=== PATIENT | male | born 1960 | race African-American/Black ===

== ENCOUNTER 2020-06-05 11:51 | Emergency (ER) | payer MEDICAID ==
[~2020-06-05] VITALS: Ht 185.4 cm; Wt 142.0 kg
[2020-06-05] MEDS ORDERED: SODIUM CHLORIDE 0.9% 1,000 ML IV ONE (12:15)
[2020-06-05] MEDS ORDERED: MAGNESIUM/ALUMINUM HYDROXIDE/SIMETHICONE 30ML UDC PO STA (12:15)
[2020-06-05] MEDS ORDERED: KETOROLAC 30MG/ML VIAL IV STA (12:15)
[2020-06-05] MEDS ORDERED: ONDANSETRON HCL 4MG/2ML INJ IV STA (12:15)
[2020-06-05 12:55] LABS: BASOPHILS % 0.9 % (0.0-2.0); EOSINOPHILS % 0.3 % (0.0-5.0); HEMATOCRIT. 33.7 % (42.0-52.0); HEMOGLOBIN. 10.3 g/dL (14.0-18.0); MEAN CORPUSCULAR HEMOGLOBIN 23.7 pg (28.0-32.0); MEAN CORPUSCULAR VOLUME 77.3 fL (80.0-94.0); MEAN PLATELET VOLUME 9.2 fl (7.4-10.4); MONOCYTES % 9.6 % (2.0-8.0); NEUTROPHILS % 73.2 % (40.0-76.0); PLATELET 180 x1000/uL (130-400); RED BLOOD CELL COUNT 4.35 mill/uL (4.7-6.1); RED CELL DISTRIBUTION WIDTH 20.4 % (11.6-14.6)
[2020-06-05 12:56] LABS: CHLORIDE 108 mEq/L (98-107)
[2020-06-05 13:00] LABS: ETHANOL BLOOD < 10 mg/dL
[2020-06-05 13:04] LABS: INR 1.6; PROTHROMBIN TIME 16.6 sec (9.6-11.0)
[2020-06-05 15:45] VITALS: BP 148/74
== END 2020-06-05 15:57 | disposition home or self-care (01) ==
LOC: ER 11:51
DX: R10.13 Epigastric pain (principal); E11.9 Type 2 diabetes mellitus without complications
CPT/HCPCS: 36415; 74176; 76705; 80053; 80320; 83690; 85025; 85610; 93005; 96361; 96374; 96375; 99285; J1885; J2405; J7030; G0480

== ENCOUNTER 2020-07-14 20:26 | Emergency (ER) | payer MEDICAID ==
[~2020-07-14] VITALS: Ht 185.4 cm; Wt 129.0 kg
[2020-07-14 21:41] VITALS: BP 116/85
== END 2020-07-14 21:44 | disposition home or self-care (01) ==
LOC: ER 20:42
DX: Z48.00 Encounter for change or removal of nonsurgical wound dressing (principal); I25.10 Atherosclerotic heart disease of native coronary artery without angina pectoris; Z95.1 Presence of aortocoronary bypass graft; R03.0 Elevated blood-pressure reading, without diagnosis of hypertension; E11.9 Type 2 diabetes mellitus without complications
CPT/HCPCS: 99281

== ENCOUNTER 2020-12-06 22:41 | Emergency (ER) | payer MEDICAID ==
[~2020-12-06] VITALS: Ht 185.4 cm; Wt 141.0 kg
[2020-12-07] MEDS ORDERED: OXYMETAZOLINE HCL NASAL SPRAY 15ML BOTHNSTRLS SCH
[2020-12-07] MEDS ORDERED: CLONIDINE 0.1MG TABLET PO ONE
[2020-12-07 00:23] VITALS: BP 130/96
[2020-12-07 00:33] LABS: BASOPHILS % 0.7 % (0.0-2.0); EOSINOPHILS % 0.7 % (0.0-5.0); HEMATOCRIT. 37.5 % (42.0-52.0); HEMOGLOBIN. 11.8 g/dL (14.0-18.0); LYMPHOCYTES % 19.5 % (20.0-50.0); MEAN CORPUSCULAR HEMOGLOBIN 24.5 pg (28.0-32.0); MEAN CORPUSCULAR VOLUME 77.5 fL (80.0-94.0); MEAN PLATELET VOLUME 8.4 fl (7.4-10.4); MONOCYTES % 8.4 % (2.0-8.0); NEUTROPHILS % 70.7 % (40.0-76.0); PLATELET 166 x1000/uL (130-400); RED BLOOD CELL COUNT 4.84 mill/uL (4.7-6.1); RED CELL DISTRIBUTION WIDTH 16.4 % (11.6-14.6)
[2020-12-07] MEDS ORDERED: OXYM30SP26 BOTHNSTRLS (00:43)
== END 2020-12-07 00:52 | disposition home or self-care (01) ==
LOC: ER 22:41
DX: R04.0 Epistaxis (principal); I10 Essential (primary) hypertension; E11.9 Type 2 diabetes mellitus without complications; Z98.890 Other specified postprocedural states
CPT/HCPCS: 36415; 85025; 99283

== ENCOUNTER 2021-02-14 07:49 | Emergency (ER) | payer MEDICAID ==
[~2021-02-14] VITALS: Ht 185.4 cm; Wt 103.0 kg
[~2021-02-14 07:49] MED LIST: OXYM30SP26 BOTHNSTRLS
[2021-02-14] MEDS ORDERED: FAMOTIDINE 20MG/2ML VIAL IV STA (08:12)
[2021-02-14] MEDS ORDERED: ONDANSETRON HCL 4MG/2ML INJ IV STA (08:12)
[2021-02-14] MEDS ORDERED: MORPHINE SULFATE 4 MG/ML CPJ (NOT FOR IM USE) IV STA (08:12)
[2021-02-14] MEDS ORDERED: SODIUM CHLORIDE 0.9% 1,000 ML IV ONE (08:15)
[2021-02-14 08:57] LABS: BASOPHILS % 0.7 % (0.0-2.0); EOSINOPHILS % 1.1 % (0.0-5.0); HEMATOCRIT. 37.8 % (42.0-52.0); HEMOGLOBIN. 12.1 g/dL (14.0-18.0); LYMPHOCYTES % 20.5 % (20.0-50.0); MEAN CORPUSCULAR HEMOGLOBIN 24.5 pg (28.0-32.0); MEAN CORPUSCULAR VOLUME 76.4 fL (80.0-94.0); MEAN PLATELET VOLUME 8.1 fl (7.4-10.4); MONOCYTES % 8.3 % (2.0-8.0); NEUTROPHILS % 69.4 % (40.0-76.0); PLATELET 203 x1000/uL (130-400); RED BLOOD CELL COUNT 4.95 mill/uL (4.7-6.1); RED CELL DISTRIBUTION WIDTH 15.7 % (11.6-14.6)
[2021-02-14 09:00] LABS: CHLORIDE 105 mEq/L (98-107)
[2021-02-14] MEDS ORDERED: IOHEXOL-300 100 ML BOTTLE ONE (09:57)
[2021-02-14] MEDS ORDERED: IOHEXOL 350 MG/ML 200ML INFUS..BTL IV ONE (09:57)
[2021-02-14] MEDS ORDERED: MAGNESIUM/ALUMINUM HYDROXIDE/SIMETHICONE 30ML UDC PO STA (10:18)
[2021-02-14] MEDS ORDERED: VISCOUS LIDOCAINE 2% 15 ML UDC PO STA (10:18)
[2021-02-14 11:36] LABS: CLARITY URINE CLEAR (CLEAR); COLOR URINE YELLOW (YELLOW); KETONES URINE NEGATIVE (NEGATIVE); LEUKOCYTE ESTERASE URINE NEGATIVE (NEGATIVE); NITRITE URINE NEGATIVE (NEGATIVE); OCCULT BLOOD URINE NEGATIVE (NEGATIVE); PH URINE 5.5 (4.5-8.0); PROTEIN URINE NEGATIVE (NEGATIVE); SPECIFIC GRAVITY URINE 1.055 (1.005-1.030)
[2021-02-14] MEDS ORDERED: ONDA4TAB5 MT (11:49)
[2021-02-14] MEDS ORDERED: FAMO40TA70 MT (11:49)
[2021-02-14] MEDS ORDERED: HYDR-4346 MT (11:49)
[2021-02-14] MEDS ORDERED: HYDROCODONE/ACETAMINOPHEN 5/325MG TABLET PO ONE (12:15)
[2021-02-14 12:30] VITALS: BP 177/89
== END 2021-02-14 12:50 | disposition home or self-care (01) ==
LOC: ER 07:49
DX: K85.90 Acute pancreatitis without necrosis or infection, unspecified (principal); E11.9 Type 2 diabetes mellitus without complications; I10 Essential (primary) hypertension; Z79.899 Other long term (current) drug therapy
CPT/HCPCS: 36415; 74177; 80053; 81003; 83605; 83690; 84484; 85025; 93005; 96361; 96374; 96375; 99285; J2270; J2405; J3490; J7030; Q9967; Z7610

== ENCOUNTER 2021-03-06 00:20 | Emergency (ER) | payer MEDICAID ==
[~2021-03-06] VITALS: Ht 185.4 cm; Wt 141.0 kg
[~2021-03-06 00:20] MED LIST changes: +FAMO40TA70 MT; +HYDR-4346 MT; +ONDA4TAB5 MT
[2021-03-06 02:04] VITALS: BP 161/105
[2021-03-06 02:33] LABS: CLARITY URINE CLEAR (CLEAR); COLOR URINE YELLOW (YELLOW); KETONES URINE NEGATIVE (NEGATIVE); LEUKOCYTE ESTERASE URINE TRACE (NEGATIVE); NITRITE URINE NEGATIVE (NEGATIVE); OCCULT BLOOD URINE NEGATIVE (NEGATIVE); PROTEIN URINE NEGATIVE (NEGATIVE); SPECIFIC GRAVITY URINE 1.025 (1.005-1.030)
[2021-03-06] MEDS ORDERED: NA PHOS,M-B/NA PHOS,DI-BA ENEMA 118ML PR ONE (02:45)
[2021-03-06 03:02] LABS: BASOPHILS % 0.3 % (0.0-2.0); EOSINOPHILS % 0.2 % (0.0-5.0); HEMATOCRIT. 37.1 % (42.0-52.0); LYMPHOCYTES % 9.9 % (20.0-50.0); MEAN CORPUSCULAR HEMOGLOBIN 24.5 pg (28.0-32.0); NEUTROPHILS % 81.6 % (40.0-76.0); PLATELET 162 x1000/uL (130-400); RED BLOOD CELL COUNT 4.88 mill/uL (4.7-6.1); RED CELL DISTRIBUTION WIDTH 16.3 % (11.6-14.6)
[2021-03-06 03:09] LABS: CHLORIDE 108 mEq/L (98-107)
== END 2021-03-06 04:40 | disposition home or self-care (01) ==
LOC: ER 00:20
DX: K59.00 Constipation, unspecified (principal); I10 Essential (primary) hypertension; E11.9 Type 2 diabetes mellitus without complications; Z88.1 Allergy status to other antibiotic agents; Z79.899 Other long term (current) drug therapy
CPT/HCPCS: 36415; 80053; 81003; 85025; 93005; 99284

== ENCOUNTER 2024-06-18 19:23 | Emergency (ER) | payer MEDICAID, OTHER ==
[~2024-06-18] VITALS: Ht 185.4 cm; Wt 147.0 kg
[2024-06-18 19:35] VITALS: O2SAT 99
[2024-06-18] MEDS: NA PHOS,M-B/NA PHOS,DI-BA ENEMA 118ML PR ONE (20:15)
[2024-06-18] MEDS ORDERED: NA P133E8 RC (21:13)
[2024-06-18] MEDS ORDERED: SENN-362 MT (21:15)
[2024-06-18] MEDS ORDERED: DOCU-138 MT (21:15)
[2024-06-18 21:20] VITALS: BP 166/85; PULSE 91; RESP 17; TEMP 36.11400; O2SAT 100
== END 2024-06-18 21:20 | disposition home or self-care (01) ==
LOC: ER 19:23
DX: K59.00 Constipation, unspecified (principal); E11.9 Type 2 diabetes mellitus without complications; I10 Essential (primary) hypertension; Z88.1 Allergy status to other antibiotic agents; Z79.899 Other long term (current) drug therapy
CPT/HCPCS: 99283; 99284